=== PATIENT | female | born 1980 | race Asian ===

== ENCOUNTER 2023-08-11 08:50 | Outpatient (CLI) | payer OTHER, SELFPAY | END 2023-08-11 08:51 | disposition home or self-care (01) | LOC: NFLDREF 08-14 04:19 | PROVIDERS: PCP Family Medicine; Referring Provider Family Medicine; Visit Provider Family Medicine | DX: Z13.220 Encounter for screening for lipoid disorders (principal); F41.9 Anxiety disorder, unspecified; R53.83 Other fatigue; Z13.9 Encounter for screening, unspecified; Z78.9 Other specified health status | CPT/HCPCS: 80053; 80061; 82306; 82607; 82728; 84443 ==

== ENCOUNTER 2024-09-12 09:52 | Outpatient (CLI) | payer OTHER, SELFPAY | END 2024-09-12 09:53 | disposition home or self-care (01) | LOC: NFLDREF 09-14 12:04 | PROVIDERS: PCP Family Medicine; Referring Provider Family Medicine; Visit Provider Family Medicine | DX: E63.8 Other specified nutritional deficiencies (principal); E78.2 Mixed hyperlipidemia | CPT/HCPCS: 80053; 80061; 82607; 82728 ==

== ENCOUNTER 2025-07-31 08:08 | Outpatient (CLI) | payer OTHER, SELFPAY ==
--- NOTE | 2025-07-31 08:15 | CRLHL7_ITS ---
For Patients: As a result of the Century Cures Act, medical imaging exams and procedure reports are released immediately into your electronic medical record. You may view this report before your referring provider. If you have questions, please contact your health care provider. INDICATION: BILATERAL SCREENING MAMMOGRAM, ASYMPTOMATIC 44 Y/O FEMALE COMPARISON: 07/19/2023, 07/23/2020, 07/09/2020 TECHNIQUE: Digital mammogram in CC and MLO projections including computer-aided detection (CAD) and tomosynthesis. BREAST COMPOSITION: The breasts are heterogeneously dense, which may obscure small masses. FINDINGS: No suspicious findings. ASSESSMENT: BI-RADS 2 Benign RECOMMENDATION: Annual screening mammogram. A lay language report of this examination will be provided to the patient. Dictated by: Keyur Ricks MD @ 08/01/2025 12:19:58 (Electronically Signed)
== END 2025-07-31 08:09 | disposition home or self-care (01) ==
LOC: MAMMO 08:09
PROVIDERS: PCP Family Medicine; Visit Provider Family Medicine
DX: Z12.31 Encounter for screening mammogram for malignant neoplasm of breast (principal); R92.333 Mammographic heterogeneous density, bilateral breasts
CPT/HCPCS: 77063; 77067

== ENCOUNTER 2025-09-01 08:05 | Outpatient (CLI) | payer OTHER, SELFPAY | END 2025-09-01 08:06 | disposition home or self-care (01) | LOC: NFLDREF 09-05 08:34 | PROVIDERS: PCP Family Medicine; Referring Provider Family Medicine; Visit Provider Family Medicine | DX: E78.5 Hyperlipidemia, unspecified (principal) | CPT/HCPCS: 80053; 80061 ==